=== PATIENT | female | born 1980 | race Caucasian/White ===

== ENCOUNTER 2020-01-23 19:30 | Emergency (ER) | payer BC, MEDICAID ==
[~2020-01-23] VITALS: Ht 160 cm; Wt 158.1 kg
[2020-01-23 19:34] VITALS: BP 157/84
[2020-01-23] MEDS ORDERED: acetaminophen 325mg tablet PO ONE (20:50)
[2020-01-23] MEDS ORDERED: LIDOcaine 1% W/epiNEPHrine 1:200,000 10ml vial IJ ONE (20:50)
[2020-01-23] MEDS ORDERED: LIDOcaine 1% w/epiNEPHrine 1:200,000 30ml vial IJ ONE (20:55)
== END 2020-01-23 21:21 | disposition home or self-care (01) ==
LOC: ER 19:31
DX: L02.512 Cutaneous abscess of left hand (principal); Z88.0 Allergy status to penicillin; Z91.040 Latex allergy status
CPT/HCPCS: 10060; 99282

== ENCOUNTER 2020-04-17 12:11 | Emergency (ER) | payer BC, MEDICAID ==
[~2020-04-17] VITALS: Ht 160 cm; Wt 154.6 kg
[2020-04-17] MEDS ORDERED: CYCL5TAB14 PO (13:37)
[2020-04-17] MEDS ORDERED: TRAM50TA2 PO (13:37)
[2020-04-17 13:55] VITALS: BP 136/84
== END 2020-04-17 13:59 | disposition home or self-care (01) ==
LOC: ER 12:11
DX: M54.5 Low back pain (principal); I10 Essential (primary) hypertension; G89.29 Other chronic pain; F32.9 Major depressive disorder, single episode, unspecified; Z88.0 Allergy status to penicillin; Z91.040 Latex allergy status; Z79.899 Other long term (current) drug therapy
CPT/HCPCS: 99283

== ENCOUNTER 2020-10-01 14:54 | Emergency (ER) | payer BC, MEDICAID ==
[~2020-10-01] VITALS: Ht 160 cm; Wt 150.0 kg
[~2020-10-01 14:54] MED LIST: CYCL5TAB14 PO
[2020-10-01 15:50] VITALS: BP 168/100
== END 2020-10-01 23:36 | disposition left against medical advice (07) ==
LOC: ER 14:55
DX: L02.91 Cutaneous abscess, unspecified (principal); Z53.21 Procedure and treatment not carried out due to patient leaving prior to being seen by health care provider

== ENCOUNTER 2020-12-17 18:24 | Emergency (ER) | payer BC, MEDICAID ==
[~2020-12-17] VITALS: Ht 160 cm; Wt 150.0 kg
[2020-12-17 19:03] VITALS: BP 144/102
[2020-12-17] MEDS ORDERED: CYCL-1 PO (19:09)
[2020-12-17] MEDS ORDERED: DOXY100C76 PO (19:09)
[2020-12-17] MEDS ORDERED: IBUP-1984 PO (19:09)
== END 2020-12-17 19:52 | disposition home or self-care (01) ==
LOC: ER 18:25
DX: L08.9 Local infection of the skin and subcutaneous tissue, unspecified (principal); M25.552 Pain in left hip; Z88.0 Allergy status to penicillin; Z91.040 Latex allergy status; Z79.2 Long term (current) use of antibiotics; Z79.899 Other long term (current) drug therapy
CPT/HCPCS: 99283

== ENCOUNTER 2021-02-17 11:32 | Emergency (ER) | payer BC, MEDICAID ==
[~2021-02-17] VITALS: Ht 160 cm; Wt 152.3 kg
[~2021-02-17 11:32] MED LIST changes: +CYCL-1 PO
[2021-02-17 11:43] VITALS: BP 141/106
[2021-02-17] MEDS ORDERED: ketorolac trometh. 30mg/ml inj. IM ONE (11:50)
== END 2021-02-17 13:28 | disposition home or self-care (01) ==
LOC: ER 11:32
DX: S39.012A Strain of muscle, fascia and tendon of lower back, initial encounter (principal); M54.41 Lumbago with sciatica, right side; Z88.0 Allergy status to penicillin; Z91.040 Latex allergy status; Z79.899 Other long term (current) drug therapy; X58.XXXA Exposure to other specified factors, initial encounter; Y93.89 Activity, other specified; Y92.89 Other specified places as the place of occurrence of the external cause; Y99.8 Other external cause status
CPT/HCPCS: 96372; 99283; J1885

== ENCOUNTER 2021-06-18 16:14 | Emergency (ER) | payer BC, MEDICAID ==
[~2021-06-18] VITALS: Ht 160 cm; Wt 154.6 kg
[2021-06-18 16:23] VITALS: BP 179/99
[2021-06-18] MEDS ORDERED: orphenadrine citrate 60mg/2ml inj. IM ONE (18:55)
[2021-06-18] MEDS ORDERED: ketorolac trometh. 30mg/ml inj. IV ONE (18:55)
== END 2021-06-18 19:40 | disposition home or self-care (01) ==
LOC: ER 16:15
DX: G89.29 Other chronic pain (principal); M54.59 Other low back pain; F32.A Depression, unspecified; I10 Essential (primary) hypertension; Z88.0 Allergy status to penicillin; Z91.040 Latex allergy status; Z79.899 Other long term (current) drug therapy
CPT/HCPCS: 96372; 96374; 99284; J1885; J2360

== ENCOUNTER 2021-07-17 12:53 | Emergency (ER) | payer BC, MEDICAID ==
[~2021-07-17] VITALS: Ht 160 cm; Wt 151.8 kg
[2021-07-17 13:49] VITALS: BP 141/105
[2021-07-17] MEDS ORDERED: ketorolac tromethamine 15mg/ml inj. IM ONE (14:25)
[2021-07-17] MEDS ORDERED: orphenadrine citrate 60mg/2ml inj. IM ONE (14:25)
[2021-07-17] MEDS ORDERED: IBUP-1984 PO (14:55)
[2021-07-17] MEDS ORDERED: ORPH100T2 PO (14:55)
== END 2021-07-17 15:12 | disposition home or self-care (01) ==
LOC: ER 12:53
DX: M54.2 Cervicalgia (principal); M54.9 Dorsalgia, unspecified; I10 Essential (primary) hypertension; G89.29 Other chronic pain; Z88.0 Allergy status to penicillin; Z91.040 Latex allergy status; Z79.899 Other long term (current) drug therapy
CPT/HCPCS: 96372; 99284; J1885; J2360

== ENCOUNTER 2021-07-19 16:29 | Emergency (ER) | payer BC, MEDICAID ==
[~2021-07-19] VITALS: Ht 160 cm; Wt 151.8 kg
[~2021-07-19 16:29] MED LIST changes: +IBUP-1984 PO; +ORPH100T2 PO
[2021-07-19 16:56] VITALS: BP 179/115
[2021-07-19] MEDS ORDERED: normal saline 1000ml 1,000 ML IV ONE (19:35)
[2021-07-19] MEDS ORDERED: diphenhydrAMINE 50 mg/ml inj IV ONE (19:35)
[2021-07-19] MEDS ORDERED: ketorolac trometh. 30mg/ml inj. IV ONE (19:35)
[2021-07-19] MEDS ORDERED: proCHLORperazine 10 MG/2 ml inj IV ONE (19:35)
--- NOTE | 2021-07-19 20:29 | NUR ---
IVP X3 GIVEN BY MOHIT CASTELLANOS
--- NOTE | 2021-07-19 21:55 | NUR ---
IV DC'D PT BEING DISCHARGED, DRESSING APPLIED
== END 2021-07-19 21:57 | disposition home or self-care (01) ==
LOC: ER 16:33
DX: R51.9 Headache, unspecified (principal); R11.2 Nausea with vomiting, unspecified; I10 Essential (primary) hypertension; G89.29 Other chronic pain; F32.A Depression, unspecified; Z88.0 Allergy status to penicillin; Z91.040 Latex allergy status; Z79.899 Other long term (current) drug therapy
CPT/HCPCS: 96361; 96374; 96375; 99284; J0780; J1200; J1885; J7030

== ENCOUNTER 2023-08-26 15:37 | Emergency (ER) | payer BC, MEDICAID ==
[~2023-08-26] VITALS: Ht 160 cm; Wt 159.1 kg
[~2023-08-26 15:37] MED LIST changes: -IBUP-1984 PO; -ORPH100T2 PO; +ORPH100T4 PO
[2023-08-26] MEDS ORDERED: CLIN300C54 PO (16:55)
[2023-08-26] MEDS ORDERED: HYDR-3965 PO (16:55)
[2023-08-26 17:20] VITALS: BP 145/72; PULSE 100; RESP 18; TEMP 99.1; O2SAT 98
== END 2023-08-26 17:21 | disposition home or self-care (01) ==
LOC: ER 15:38
DX: L02.212 Cutaneous abscess of back [any part, except buttock and flank] (principal); I10 Essential (primary) hypertension; Z88.0 Allergy status to penicillin; Z91.040 Latex allergy status; Z79.899 Other long term (current) drug therapy
CPT/HCPCS: 99283

== ENCOUNTER 2023-11-03 20:55 | Emergency (ER) | payer BC, MEDICAID ==
[~2023-11-03] VITALS: Ht 160 cm; Wt 164.6 kg
[2023-11-03 21:29] LABS: BASOPHILS # (AUTO) 0.1 X10'3 (0-0.2); BASOPHILS % (AUTO) 0.4 % (0-1); EOSINOPHILS % (AUTO) 0.3 % (0-6); HEMATOCRIT 34.7 % (35.0-45.0); HEMOGLOBIN 11.6 g/dl (12.0-16.0); LYMPHOCYTES # (AUTO) 2.8 X10'3 (1.1-4.8); LYMPHOCYTES % (AUTO) 20.4 % (21-51); MEAN CORPUSCULAR HEMOGLOBIN 31.9 PG (27.0-31.0); MEAN CORPUSCULAR HGB CONC 33.3 g/dL (33.0-36.5); MEAN CORPUSCULAR VOLUME 95.7 FL (78-98); MEAN PLATELET VOLUME 8.8 FL (7.4-10.4); MONOCYTES # (AUTO) 0.6 X10'3 (0-0.9); MONOCYTES % (AUTO) 4.4 % (2-12); NEUTROPHILS # (AUTO) 10.2 X10'3 (1.8-7.7); NEUTROPHILS % (AUTO) 74.5 % (42-75); PLATELET COUNT 299 X10'3 (140-440); RED BLOOD COUNT 3.62 X10'6 (4.20-5.60); RED CELL DISTRIBUTION WIDTH 13.8 % (11.5-14.5); WHITE BLOOD COUNT 13.7 X10'3 (4.5-11.0)
[2023-11-03 21:41] LABS: ALANINE AMINOTRANSFERASE 32 U/L (12-78); ALBUMIN 3.2 G/DL (3.4-5.0); ALBUMIN/GLOBULIN RATIO 0.7 (1.1-1.5); ANION GAP 13 (8-16); ASPARTATE AMINO TRANSFERASE 15 U/L (10-37); BILIRUBIN,TOTAL 0.3 MG/DL (0.1-1.0); BLOOD UREA NITROGEN 18 MG/DL (7-18); BUN/CREATININE RATIO 10.7 (10.0-20.0); CALCIUM 8.5 MG/DL (8.5-10.1); CHLORIDE 102 MMOL/L (99-107); CREATININE 1.68 MG/DL (0.40-0.90); GLUCOSE 291 MG/DL (70-104); POTASSIUM 4.1 MMOL/L (3.5-5.1); SODIUM 141 MMOL/L (135-145); TOTAL CARBON DIOXIDE 26.2 MMOL/L (24-32); TOTAL PROTEIN 7.9 G/DL (6.4-8.2); eCRCL 35 ML/MIN; eGFR 33 ML/MIN
[2023-11-03 21:42] LABS: ALKALINE PHOSPHATASE 144 IU/L (46-116)
[2023-11-03 21:49] LABS: PRO BRAIN NATRIURETIC PEPTIDE < 30 PG/ML (0-125)
[2023-11-04] MEDS: prednisone 10mg tablet PO SCH (00:04)
[2023-11-04] MEDS: ipratropium/albuterol 3ml nebule NEB PRN (01:15)
[2023-11-04 01:17] VITALS: PULSE 107; RESP 20; O2SAT 98
[2023-11-04 01:24] VITALS: PULSE 107; RESP 18; O2SAT 98
[2023-11-04] MEDS ORDERED: PRED20TA PO (01:31)
[2023-11-04 02:09] VITALS: BP 156/96; PULSE 114; RESP 18; TEMP 98.7; O2SAT 98
== END 2023-11-04 02:27 | disposition home or self-care (01) ==
LOC: ER 20:56
DX: J45.909 Unspecified asthma, uncomplicated (principal); Z20.822 Contact with and (suspected) exposure to COVID-19; I10 Essential (primary) hypertension; F32.A Depression, unspecified; Z88.0 Allergy status to penicillin; Z91.040 Latex allergy status; Z79.899 Other long term (current) drug therapy
CPT/HCPCS: 36415; 71045; 80053; 83880; 84484; 85025; 87811; 93005; 94640; 99285; J7030; J7512; 94760; A4615

== ENCOUNTER 2024-01-07 15:57 | Emergency (ER) | payer BC, MEDICAID ==
[~2024-01-07] VITALS: Ht 167.6 cm; Wt 164.9 kg
[2024-01-07 16:05] VITALS: BP 171/99; PULSE 100; RESP 16; TEMP 98.4; O2SAT 99
[2024-01-07] MEDS ORDERED: LIDO700A32 TD (16:55)
[2024-01-07] MEDS: acetaminophen 325mg tablet PO ONE (16:59)
[2024-01-07] MEDS: LIDOcaine 5% patch TP ONE (17:07)
== END 2024-01-07 17:17 | disposition home or self-care (01) ==
LOC: ER 15:58
DX: M25.522 Pain in left elbow (principal); I10 Essential (primary) hypertension; G89.29 Other chronic pain; M54.9 Dorsalgia, unspecified; F32.A Depression, unspecified; F17.210 Nicotine dependence, cigarettes, uncomplicated; Z88.0 Allergy status to penicillin; Z91.040 Latex allergy status; Z79.899 Other long term (current) drug therapy
CPT/HCPCS: 73080; 99283

== ENCOUNTER 2024-04-24 18:15 | Emergency (ER) | payer BC, MEDICAID ==
[~2024-04-24 18:15] MED LIST changes: +LIDO700A32 TD
[2024-04-24 18:33] VITALS: BP 156/105; PULSE 112
[2024-04-24] MEDS ORDERED: DIF150T PO (21:12)
[2024-04-24] MEDS: fluconazole 150mg tablet PO STA (21:20)
[2024-04-24 21:22] VITALS: RESP 16; TEMP 98.6; O2SAT 100
== END 2024-04-24 21:24 | disposition home or self-care (01) ==
LOC: ER 18:16
DX: B37.31 Acute candidiasis of vulva and vagina (principal); I10 Essential (primary) hypertension; Z88.0 Allergy status to penicillin; Z91.040 Latex allergy status
CPT/HCPCS: 99283

== ENCOUNTER 2024-05-21 13:53 | Emergency (ER) | payer BC, MEDICAID ==
[~2024-05-21] VITALS: Ht 160 cm; Wt 157.3 kg
[2024-05-21 14:21] VITALS: BP 140/91; PULSE 115; RESP 20; TEMP 97.8; O2SAT 96
== END 2024-05-21 18:09 | disposition left against medical advice (07) ==
LOC: ER 13:54
DX: N76.0 Acute vaginitis (principal); Z88.0 Allergy status to penicillin; Z88.5 Allergy status to narcotic agent

== ENCOUNTER 2024-08-05 12:37 | Emergency (ER) | payer BC, MEDICAID ==
[~2024-08-05] VITALS: Ht 161.3 cm; Wt 146.7 kg
[~2024-08-05 12:37] MED LIST changes: +LIDO-52 TD; -LIDO700A32 TD
[2024-08-05 13:00] VITALS: BP 135/89; PULSE 121; O2SAT 99
--- NOTE | 2024-08-05 13:40 | Physician Documentation ---
History of Present Illness ~ Chief Complaint: Abscess Stated Complaint: WOUND SEAPING Time Seen by MD: 14:29 Primary Medical Doctor: Aurea LEVI This is a 43-year-old female who presents with an area of pain and swelling to her left posterior shoulder for the past week, patient reports that it is "weeping". Patient reports no fevers. Tetanus Within 5 Years: Yes (2018) Medication Reconciliation Allergies: Coded Allergies: Penicillins (Verified Allergy, Unknown, 05/21/24) States greater than 5 years, had hives and given treatment for it. latex (Verified Allergy, Unknown, 05/21/24) Scheduled Cyclobenzaprine Hcl (Cyclobenzaprine Hcl), 1 TAB PO DAILY Cyclobenzaprine* (Cyclobenzaprine*), 1 TAB PO Q8H Ibuprofen (Ibuprofen), 1 TAB PO Q8H Lidocaine (Lidoderm), 1 PATCH TD DAILY Orphenadrine Citrate (Norflex), 100 MG PO Q12H Sulfamethoxazole/Trimethoprim (Bactrim Ds Tablet), 2 TAB PO Q12H Scheduled PRN Hydrocodone Bit/Acetaminophen 5/325 MG ([place] 5/325 MG), 1 TAB PO Q6H PRN for pain Past Medical History Past Medical History: Hypertension, Renal Disease, Chronic Back Pain, Depression Past Surgical History: no surgical history Alcohol Use: None Drug Use: none Lives In: Home Review of Systems ROS Area of pain and swelling to left upper back as stated above in the HPI, otherwise all systems are reviewed and negative. Physical Exam Vital Signs: Temperature: 98.3, Source: Temporal, Heart Rate: 121, Respiratory Rate: 18, BP: 135/89, Pulse Oximetry: 99, Weight: 146.700 Oxygen Flow Rate: 0 Physical Exam VITALS: Reviewed and as above. GENERAL: Alert, nontoxic appearing, no apparent distress. RESPIRATORY: No increased work of breathing, no respiratory distress, speaking in full clear sentences SKIN: Left upper back in scapular area approximately 7 cm x 6 cm area of erythema and swelling with purulent exudates, area is fluctuant Procedures I & D Procedure : Site: Left upper back Anesthesia: Lidocaine w/ Epi Volume Anesthetic (mls): 15 Blade Size: 11 Prep/Supplies: dressing applied, irrigated, packing placed (Drain placed) Incision: mass incised, pus drained Tolerated Procedure Well?: yes, no complications Procedure Note Area visualized utilizing point of care ultrasound prior to incision and drainage, interpreted when of care ultrasound imaging as multiple loculated areas of fluctuance Progress Results/Orders Results/Orders Orders - NIC LAROSE Laceration/I&D Tray Set Up (08/05/24 14:43) Wound Care Orders (08/05/24 14:43) Cult (Aer) Routine C&S+Gram St (08/05/24 16:42) Completed Orders - NIC LAROSE Tetanus/Pertuss/Diph Acell/Pf (Boostrix (08/05/24 14:45) Lidocaine 1% W/Epi 1:100,000 (Xylocaine (08/05/24 14:45) Ketorolac Trometh 15mg/Ml Vial (Toradol (08/05/24 15:50) Acetaminophen 325mg Tablet (Tylenol Tabl (08/05/24 15:50) Sulfamethox/Trimetho. Ds Tab (Septra Ds (08/05/24 15:55) Hydrocodone/Apap 10/325 ([place] 10/325mg (08/05/24 18:05) Medications Received in ER Medications (Trade) Dose Ordered Sig/Dahlia Route PRN Reason Start Time Stop Time Status Last Admin Dose Admin (Boostrix vaccine syringe) 0.5 ml ONCE ONCE IMVAC 08/05/24 14:45 08/05/24 14:48 DC 08/05/24 15:19 0.5 ML (Toradol injection) 15 mg ONCE ONCE IM 08/05/24 15:50 08/05/24 15:52 DC 08/05/24 17:07 15 MG (Tylenol tablet) 975 mg ONCE ONCE PO 08/05/24 15:50 08/05/24 15:52 DC 08/05/24 17:06 975 MG (Septra DS tab) 2 tab ONCE ONCE PO 08/05/24 15:55 08/05/24 15:56 DC 08/05/24 17:06 2 TAB ([place] 10/325mg tab) 1 tab ONCE ONCE PO 08/05/24 18:05 08/05/24 18:07 DC 08/05/24 18:09 1 TAB Vital Signs 08/05/24 08/05/24 08/05/24 13:00 18:09 18:39 Temp 98.3 98.3 Pulse 121 Resp 18 16 B/P (MAP) 135/89 Pulse Ox 99 O2 Flow Rate 0 Medical Decision Making Findings MSE performed in triage and patient returned to ED lobby by nursing staff This otherwise well 43-year-old female presented to the emergency department with an area of pain and swelling to her left upper back worsening over the last week, on exam there was an area of approximately 6 cm x 7 cm of erythema, induration, fluctuance, and purulent discharge from multiple areas consistent with carbuncle and abscess. The area was anesthetized and several areas of spontaneous drainage were expanded utilizing an 11 blade scalpel to allow greater drainage of purulent material, a large amount of purulent material was drained from the abscess and a loop drain was placed between to a four parallel incision sites to promote further drainage, plan is for patient to return in two days for a wound check and complete a course of oral antibiotics. I discussed plan with patient who agrees with plan and patient provided home care instructions, follow up instructions, and return to care precautions which he verbalized understanding of. Patient is otherwise well-appearing with no signs or symptoms of systemic illness and is appropriate for outpatient follow up. Differential Dx:Considerations: Include: Bacteremia, Cellulitis, Erysipelas, Gas gangrene, Osteromyelitis, Septicemia Departure Time of Disposition: 18:08 Disposition: 01 HOME / SELF CARE / HOMELESS Impression: Primary Impression: Abscess of back Condition: Improved Discharge Instructions: Abscess, Care After Additional Instructions: Please take the antibiotics as prescribed, you may the high-dose ibuprofen as needed for pain though take this medication with food. Please use the [place] for breakthrough pain. You may also use [id number] Tylenol as needed as directed by [id number] packaging. Please return to your choice of medical provider in two days for a wound recheck and drain change. Soak the area with a warm moist compress two to 3 times a day then wash it and change the dressing. Please change the dressing sooner if it becomes saturated or soiled. Do not submerge the area under water. Please follow up with your primary care provider in the next few days as well. Please return to the emergency department for any new or worsening concerning symptoms including but not limited to worsening pain and swelling to the area or if you develop a fever. You may use [id number] ibuprofen and or Tylenol as needed for pain as directed by the [id number] packaging. For breakthrough pain you may use the prescribed [place], be aware that the [place] also contains the same active ingredient as Tylenol, so do not take more than the recommended amount of Tylenol as directed on the [id number] packaging. You have been prescribed an opioid medication, there are risks of addiction and overdose associated with the use of opioids. The risk of addiction to an opioid for increases for those suffering both from mental health and substance use disorders. The use of an opioid while taking other central nervous system depressants including but not limited to benzodiazepines or alcohol, or other opioids increases the risk of serious side effects that can include overdose or respiratory depression that can lead to serious injury or . Referrals: NO PRIMARY CARE PROVIDER (PCP) Prescriptions Hydrocodone Bit/Acetaminophen 5/325 MG ([place] 5/325 MG) 5 Mg/325 Mg Tablet 1 TAB PO Q6H PRN for pain for 1 Day, #4 TAB Prov: NIC LAROSE 08/05/24 Sulfamethoxazole/Trimethoprim (Bactrim Ds Tablet) 800 Mg-160 Mg Tablet 2 TAB PO Q12H for 10 Days, #40 TAB Prov: NIC LAROSE 08/05/24 Ibuprofen (Ibuprofen) 800 Mg Tablet 1 TAB PO Q8H for pain for 10 Days, #30 TAB 0 Refills Prov: NIC LAROSE 08/05/24 Education Educated: Patient Educated regarding: diagnosis, treatment, prognosis, need for follow up Signature Scribe Signature: No scribe Attestation: The note accurately reflects work and decisions made by me.CONOR Cardozo 08/05/24 21:47 NIC LAROSE Aug 05, 2024 13:40
[2024-08-05] MEDS: LIDOcaine 1% W/epiNEPHrine 1:100,000 20ml vial IJ ONE (15:18)
[2024-08-05] MEDS: TETanus/Pertussis (Acell)/Diphther VAC/PF (Tdap-Adult) 0.5ml syringe IMVAC ONE (15:19)
[2024-08-05] MEDS: sulfamethoxazole/trimethoprim DS (800/160mg) tablet PO ONE (17:06)
[2024-08-05] MEDS: acetaminophen 325mg tablet PO ONE (17:06)
[2024-08-05] MEDS: ketorolac trometh 15mg/ml vial 15 MG/ML ML IM ONE (17:07)
[2024-08-05] MEDS ORDERED: HYDR-3965 PO (18:07)
[2024-08-05] MEDS ORDERED: IBUP-1986 PO (18:07)
[2024-08-05] MEDS ORDERED: SULF1TAB49 PO (18:07)
[2024-08-05 18:09] VITALS: RESP 16
[2024-08-05] MEDS: HYDROcodone/acetaminophen 10/325mg tab PO ONE (18:09)
[2024-08-05 18:39] VITALS: TEMP 98.3
== END 2024-08-05 18:40 | disposition home or self-care (01) ==
LOC: ER 12:38
DX: L02.212 Cutaneous abscess of back [any part, except buttock and flank] (principal); F32.A Depression, unspecified; I10 Essential (primary) hypertension; Z79.899 Other long term (current) drug therapy; Z91.040 Latex allergy status; Z88.0 Allergy status to penicillin
CPT/HCPCS: 10060; 87070; 90471; 90715; 96372; 99284; J1885; 87077; 87186; A6258; A6407; A6449

== ENCOUNTER 2024-08-08 14:45 | Emergency (ER) | payer BC, MEDICAID ==
[~2024-08-08] VITALS: Ht 160 cm; Wt 147.1 kg
[~2024-08-08 14:45] MED LIST changes: +HYDR-3965 PO; +IBUP-1986 PO; +LEVO-65 PO; +SULF1TAB49 PO
[2024-08-08 14:47] VITALS: BP 182/165; PULSE 109; RESP 18; TEMP 97.9; O2SAT 97
--- NOTE | 2024-08-08 14:52 | Physician Documentation ---
History of Present Illness ~ Stated Complaint: WOUND CARE Time Seen by MD: 14:51 Primary Medical Doctor: Aurea Source: patient Mode of Arrival: POV Exam Limitations: no limitations HPI 43-year-old female recent I and D of abscess to back in ER patient needs packing removed and wound care. Patient is currently on Bactrim. Tetanus within 5 years?: Yes (2019) Medication Reconciliation Allergies: Coded Allergies: Penicillins (Verified Allergy, Unknown, 05/21/24) States greater than 5 years, had hives and given treatment for it. latex (Verified Allergy, Unknown, 05/21/24) Scheduled Cyclobenzaprine Hcl (Cyclobenzaprine Hcl), 1 TAB PO DAILY Cyclobenzaprine* (Cyclobenzaprine*), 1 TAB PO Q8H Ibuprofen (Ibuprofen), 1 TAB PO Q8H Levofloxacin (Levofloxacin), 1 TAB PO DAILY Lidocaine (Lidoderm), 1 PATCH TD DAILY Orphenadrine Citrate (Norflex), 100 MG PO Q12H Sulfamethoxazole/Trimethoprim (Bactrim Ds Tablet), 2 TAB PO Q12H Scheduled PRN Hydrocodone Bit/Acetaminophen 5/325 MG ([place] 5/325 MG), 1 TAB PO Q6H PRN for pain Past Medical History Past Medical History: Hypertension, Renal Disease, Chronic Back Pain, Depression Past Surgical History: no surgical history Alcohol Use: None Drug Use: none Lives In: Home Review of Systems All Other Systems at this time: Reviewed and Negative Integumentary: Reports: see HPI Physical Exam General Appearance: alert, WD/WN, no apparent distress Skin From packing removed. Multiple areas, carbuncle with slough and purulent drainage. Mild erythema purulent drainage can be expressed with palpation. Progress Results/Orders Results/Orders Orders - SHRUTHI FERRARA NP Wound Care Orders (08/08/24 15:18) Completed Orders - SHRUTHI FERRARA PROGRAM SCHEDULER Bacitracin Ointment (Bacitracin Ointment (08/08/24 15:20) Vital Signs 08/08/24 14:47 Temp 97.9 Pulse 109 Resp 18 B/P (MAP) 182/165 Pulse Ox 97 O2 Flow Rate 0 Medical Decision Making Findings Packing cleaned and dressed wound due to the size and extent of wound real place wound care consult patient to continue antibiotics and monitor for any new or worsening symptoms Departure Time of Disposition: 15:28 Disposition: 01 HOME / SELF CARE / HOMELESS Impression: Primary Impression: Wound Additional Impression: Wound abscess Condition: Stable Discharge Instructions: How to Change Your Wound Dressing Additional Instructions: Change dressing daily. Care consult to help complicated nature of the type upon that she would have a new pack and wearing dislocated has been placed. They will be contacting you. Continue to monitor for worsening signs or symptoms Referrals: NO PRIMARY CARE PROVIDER (PCP) Education Educated: Patient, Family Educated regarding: diagnosis, treatment, need for follow up Signature Scribe Signature: No scribe Attestation: The note accurately reflects work and decisions made by me.Shruthi PERDOMO 08/08/24 15:29 SHRUTHI FERRARA NP Aug 08, 2024 14:52 KRISTEN VELAZQUEZ MD Aug 09, 2024 09:41
[2024-08-08] MEDS: bacitracin 15gm ointment TP ONE (15:47)
== END 2024-08-08 15:53 | disposition home or self-care (01) ==
LOC: ER 14:46
DX: L02.212 Cutaneous abscess of back [any part, except buttock and flank] (principal); I10 Essential (primary) hypertension; F32.A Depression, unspecified; Z88.0 Allergy status to penicillin; Z91.040 Latex allergy status; Z79.899 Other long term (current) drug therapy
CPT/HCPCS: 99282